=== PATIENT | female | born 1950 | race Caucasian/White ===

== ENCOUNTER 2016-04-28 18:34 | Emergency (ER) | payer OTHER, MEDICARE, BC ==
[2016-04-28 18:37] VITALS: BP 138/66; PULSE 91; RESP 16; TEMP 98; O2SAT 98
[2016-04-28] MEDS ORDERED: HYDR-3533 PO (19:58)
[2016-04-28] MEDS ORDERED: CYCL1TAB29 PO (19:58)
[2016-04-28] MEDS ORDERED: CYCLOBENZAPRINE HCL 10 MG TAB PO ONE (20:00)
[2016-04-28] MEDS ORDERED: ACETAMINOPHEN/HYDROcodone 325 MG/5 MG TAB PO ONE (20:00)
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
== END 2016-04-28 21:20 | disposition home or self-care (01) ==
LOC: NEPB 18:34
DX: S80.01XA Contusion of right knee, initial encounter (principal); S93.402A Sprain of unspecified ligament of left ankle, initial encounter; S39.012A Strain of muscle, fascia and tendon of lower back, initial encounter; I10 Essential (primary) hypertension; I49.9 Cardiac arrhythmia, unspecified; I45.4 Nonspecific intraventricular block; V49.59XA Passenger injured in collision with other motor vehicles in traffic accident, initial encounter; Y93.89 Activity, other specified; Y92.410 Unspecified street and highway as the place of occurrence of the external cause
CPT/HCPCS: 72100; 73560; 73610; 99284